=== PATIENT | male | born 1940 | race Caucasian/White ===

== ENCOUNTER 2016-11-15 06:31 | Day surgery (SDC) | payer OTHER ==
[2016-11-14 11:39] LABS: MANUAL DIFF NEEDED? NO
[2016-11-14 11:46] LABS: BASO% 0.5 % (0.0-0.8); EOS# 0.22 X1000 (0.0-0.7); EOS% 2.1 % (0.0-10.0); HEMATOCRIT 41.3 % (42.0-52.0); HEMOGLOBIN 12.7 g/dL (14.0-18.0); IMM GRAN# 0.03 X1000 (0.0-0.04); IMM GRAN% 0.3 % (0.0-0.5); LYMPH# 1.93 X1000 (1.2-3.4); LYMPH% 18.6 % (20.5-51.1); MCH 25.3 PG (27-31); MCHC 30.8 g/dL (33-37); MCV 82.4 FL (81-99); MONO# 0.82 X1000 (0.11-0.59); MONO% 7.9 % (1.7-9.3); MPV 10.1 FL (7.4-10.4); NEUT% 70.6 % (42.2-75.2); PLT 232 X1000 (130-400); RBC 5.01 XMIL (4.7-6.1)
[2016-11-14 12:02] LABS: POTASSIUM 4.4 mmol/L (3.5-5.1)
[2016-11-15] MEDS ORDERED: NS 1,000 ML ONE (07:18)
[2016-11-15 08:03] LABS: INR 1.1; PROTIME 11.2 Seconds (9.2-11.7); PTT 27.9 Seconds (22.0-36.0)
[2016-11-15] MEDS ORDERED: XYLOCAINE 4% TOPICAL SOLUTION ONE (08:38)
[2016-11-15] MEDS ORDERED: SODIUM CHLORIDE 0.9% 10 ML ONE (08:38)
[2016-11-15] MEDS ORDERED: XYLOCAINE 2% VISCOUS ONE (08:38)
[2016-11-15] MEDS ORDERED: ADENOCARD ONE (09:16)
[2016-11-15] MEDS ORDERED: DIPRIVAN 1% ONE (10:13)
--- NOTE | 2016-11-15 10:31 | CARDIAC CATH REPORT ---
PROCEDURE NAME: - PROCEDURE: Cardioversion. INDICATION FOR PROCEDURE: Atrial fibrillation. PROCEDURE IN DETAIL: Mr. Barber was brought into the catheterization laboratory. After EVA was performed, he was ensured to be appropriately sedated. The defibrillator was charged to 150 joules in synchronized fashion. One shock was delivered, converted him into a junctional rhythm. He has had extremely rare P-waves during the course of this observation. He remains in a junctional rhythm around 45 beats per minute. The patient is mentating well, he is satting well. Blood pressure is maintained. We are currently awaiting discussion with [facility] regarding potential device implant. ADDENDUM: I followed up on Mr. barber in the outpatient area and he has since converted into NSR at 50 BPM. He will follow up with me in the office tomorrow for an ekg and then in 6 weeks. He will have a 30d GERARDO sent to him. These recs are in line with a discussion with the EP service at . [facility]
[2016-11-15] MEDS ORDERED: XYLOCAINE-MPF 2% ONE (11:02)
--- NOTE | 2016-11-15 12:24 | EKG Report ---
Test Performed on : 11/15/2016 11:09:07 AM Test Reason : post cardioversion Blood Pressure : / mmHG Vent. Rate : 055 BPM Atrial Rate : 055 BPM P-R Int : 208 ms QRS Dur : 108 ms QT Int : 482 ms P-R-T Axes : 072 078 077 degrees QTc Int : 461 ms Sinus bradycardia. with sinus arrhythmia. Incomplete right bundle branch block Borderline ECG When compared with ECG of 15-NOV-2016 09:58, (Unconfirmed) Sinus rhythm. has replaced Junctional rhythm. Confirmed by Nitin MCQUEEN, Padilla Lorenz ([id number]) on 11/15/2016 3:25:24 PM
[2016-11-15 13:36] VITALS: BP 129/78
--- NOTE | 2016-11-15 15:49 | EKG Report ---
Test Performed on : 11/15/2016 09:05:03 AM Test Reason : Afib Blood Pressure : / mmHG Vent. Rate : 075 BPM Atrial Rate : 241 BPM P-R Int : 000 ms QRS Dur : 110 ms QT Int : 448 ms P-R-T Axes : 000 082 080 degrees QTc Int : 500 ms Atrial flutter. with variable AV block. with premature ventricular or aberrantly conducted complexes. Incomplete right bundle branch block Prolonged QT Abnormal ECG When compared with ECG of 26-NOV-2015 01:52, Atrial flutter. has replaced Sinus rhythm. Unconfirmed Result
--- NOTE | 2016-11-15 15:50 | EKG Report ---
Test Performed on : 11/15/2016 09:58:38 AM Test Reason : post cardioversion Blood Pressure : / mmHG Vent. Rate : 048 BPM Atrial Rate : 068 BPM P-R Int : 000 ms QRS Dur : 114 ms QT Int : 510 ms P-R-T Axes : 000 078 080 degrees QTc Int : 455 ms Junctional rhythm. Abnormal ECG When compared with ECG of 15-NOV-2016 09:05, (Unconfirmed) Junctional rhythm. has replaced Atrial flutter. Vent. rate has decreased BY 27 BPM Unconfirmed Result
== END 2016-11-15 13:44 | disposition home or self-care (01) ==
LOC: OPS 06:31
PROVIDERS: ATTEND Internal Medicine Cardiovascular Disease
DX: I48.0 Paroxysmal atrial fibrillation (principal); I50.30 Unspecified diastolic (congestive) heart failure; I11.0 Hypertensive heart disease with heart failure; E78.5 Hyperlipidemia, unspecified; I83.008 Varicose veins of unspecified lower extremity with ulcer other part of lower leg; L97.809 Non-pressure chronic ulcer of other part of unspecified lower leg with unspecified severity; Z68.41 Body mass index [BMI] 40.0-44.9, adult; I25.10 Atherosclerotic heart disease of native coronary artery without angina pectoris; R00.9 Unspecified abnormalities of heart beat; E11.9 Type 2 diabetes mellitus without complications; Z79.01 Long term (current) use of anticoagulants; K21.9 Gastro-esophageal reflux disease without esophagitis; M10.9 Gout, unspecified; E66.9 Obesity, unspecified; N28.9 Disorder of kidney and ureter, unspecified; F32.9 Major depressive disorder, single episode, unspecified; Z82.49 Family history of ischemic heart disease and other diseases of the circulatory system; G47.33 Obstructive sleep apnea (adult) (pediatric); M19.90 Unspecified osteoarthritis, unspecified site; Z79.1 Long term (current) use of non-steroidal anti-inflammatories (NSAID); Z79.4 Long term (current) use of insulin; Z79.899 Other long term (current) drug therapy; Z87.11 Personal history of peptic ulcer disease; Z86.010 Personal history of colon polyps; Z96.642 Presence of left artificial hip joint
CPT/HCPCS: 80048; 82948; 85025; 85610; 85730; 92960; 93005; 93010; 93312; J0153; J7030